=== PATIENT | male | born 1960 | race Caucasian/White ===

== ENCOUNTER → 2017-09-28 | Outpatient (REF) | payer OTHER ==
[~2017-09-28] MED LIST: LACT1CAP6 PO; MULT-1081 PO
[2017-09-28 13:24] LABS: PLATELET COUNT, AUTOMATED 171 K/uL (150-450)
== END ==
PROVIDERS: ATTEND Nurse Practitioner Family
DX: R10.9 Unspecified abdominal pain (principal)
CPT/HCPCS: 82040; 82247; 82310; 82374; 82435; 82565; 82947; 84075; 84132; 84155; 84295; 84450; 84460; 84520; 85025